=== PATIENT | female | born 1995 | race Caucasian/White ===

== ENCOUNTER 2021-10-20 13:37 | Emergency (ER) | payer BC, SELFPAY ==
[2021-10-20 13:51] VITALS: BP 111/73; PULSE 79; RESP 16; TEMP 36.8; O2SAT 100
--- NOTE | 2021-10-20 14:35 | ED.URI ---
HPI - URI/Sore Throat General Chief Complaint: Upper Respiratory Infection Stated Complaint: sore throat Source: patient Mode of arrival: ambulatory Limitations: no limitations History of Present Illness HPI Narrative: Patient is a 25-year-old female who presents complaining of sore throat x1 day and generalized body aches. She reports Covid vaccinated x3, denies known Covid exposure. Patient reports taking rapid Covid test this a.m., she also has a Covid PCR test that she can send off on Saturday as she planned. She denies fever, cough, shortness of breath or chest pain. She denies significant medical history. MD elicited complaint: sore throat Related Data Home Medications Medication Instructions Recorded Confirmed ergocalciferol (vitamin D2) 10/20/21 norethindrone-e.estradiol-iron tablet 10/20/21 [11/16 (28)] Allergies Allergy/AdvReac Type Severity Reaction Status Date / Time No Known Allergies Allergy Verified 10/20/21 14:43 Review of Systems Review of Systems: CONSTITUTIONAL: Denies fever, chills, or sweats. EYES: Denies visual changes, redness, or discharge. ENT: Denies rhinorrhea, congestion, reports sore throat CARDIOVASCULAR: Denies chest pain, palpitations, or edema. RESPIRATORY: Denies cough or dyspnea. GASTROINTESTINAL: Denies abdominal pain, nausea, vomiting, or diarrhea. GENITOURINARY: Denies dysuria or hematuria. SKIN: Denies rash or itching. MUSCULOSKELETAL: Denies back pain, joint pain, or myalgia. NEUROLOGIC: Denies headache, numbness, dizziness, or weakness. PSYCHIATRIC: Denies anxiety or depression. FOR[facility]LY [facility] Past Medical History Medical History No significant past medical history Surgical History Surgical History No significant past surgical history Social History Social History (Updated 10/20/21 @ 14:40 by DENYS Shrestha) Smoking status: Never smoker Alcohol intake: never Substance use: never Living arrangements: with family Occupation/Education: occupation Comments At the time of signature, I have reviewed and agree with nursing past medical, surgical, social, and family history unless otherwise noted. Please see nursing chart for further information. There is no relevant family history pertinent to the presenting complaint. Exam Narrative: GENERAL: Well-appearing, well-nourished, and in no acute distress. HEAD: Normocephalic, atraumatic. EYES: EOMI. No redness or drainage. Conjunctiva are normal. ENT: Mucous membranes pink and moist. Nares clear. No rhinorrhea. TMs normal bilaterally. Throat with moderate erythema and edema, no exudate noted. Uvula midline. NECK: AROM. Supple. No lymphadenopathy. CHEST: No respiratory distress. HEART: Regular rate and rhythm. EXTREMITIES: Normal range of motion. No edema. SKIN: Warm, dry, no rash. NEURO: No focal deficits. Alert and oriented x3. Gait steady. PSYCH: Normal affect. No signs of depression or anxiety. Course Vital Signs Vital signs: Vital Signs Temperature 36.8 C 10/20/21 13:51 Pulse Rate 79 10/20/21 13:51 Respiratory Rate 16 10/20/21 13:51 Blood Pressure 111/73 10/20/21 13:51 Pulse Oximetry 100 10/20/21 13:51 Temperature 36.8 C 10/20/21 13:51 Pulse Rate 79 10/20/21 13:51 Respiratory Rate 16 10/20/21 13:51 Blood Pressure 111/73 10/20/21 13:51 Pulse Oximetry 100 10/20/21 13:51 Reviewed MDM - URI/Sore Throat MDM Narrative Medical decision making narrative: Patient's rapid strep is negative. Patient had rapid Covid this morning. She also reports she has a kit for a send up to the [facility], that she will complete over the weekend if needed. Discussed with patient most likely tonsillitis or URI, patient agrees with plan of care. Patient is aware of red flags and when she should seek further evaluation. Patient is stable for discharge home with outpatien
== END 2021-10-20 14:45 | disposition home or self-care (01) ==
PROVIDERS: Emergency Provider Nurse Practitioner
DX: J06.9 Acute upper respiratory infection, unspecified (principal)
CPT/HCPCS: 87081; 87880; 99213; G0463